=== PATIENT | male | born 1985 | race Caucasian/White ===

== ENCOUNTER 2020-05-04 17:44 | Emergency (ER) | payer BC ==
[~2020-05-04] VITALS: Ht 167.6 cm; Wt 83.5 kg
[2020-05-04 18:19] VITALS: BP_SYST 156
[2020-05-04] MEDS ORDERED: KETOROLAC TROMETHAMINE 60 MG/2 ML VIAL IM ONE (19:45)
[2020-05-04] MEDS: NACL 0.9% 1,000 ML IV ONE (20:06)
[2020-05-04] MEDS: KETOROLAC TROMETHAMINE 30 MG VIAL IVP ONE (20:07)
[2020-05-04] MEDS: ONDANSETRON HCL 4 MG/2 ML VIAL IVP ONE (20:08)
[2020-05-04 20:24] LABS: BASOPHILS % (AUTO) 0.2 % (0.0-2.0); EOSINOPHILS # (AUTO) 0.1 K/uL (0.0-0.4); EOSINOPHILS % (AUTO) 0.5 % (0.0-4.0); HEMATOCRIT 47.1 % (36-54); HEMOGLOBIN 15.9 g/dL (14.0-18.0); LYMPHOCYTES # (AUTO) 1.9 K/uL (1.0-5.5); LYMPHOCYTES % (AUTO) 17.2 % (20.5-51.5); MEAN CORPUSCULAR HEMOGLOBIN 30 pg (27-31); MEAN CORPUSCULAR HGB CONC 34 % (32-36); MEAN CORPUSCULAR VOLUME 89 fL (79.0-98.0); MONOCYTES # (AUTO) 0.5 K/uL (0.0-1.0); MONOCYTES % (AUTO) 4.3 % (1.7-9.3); NEUTROPHILS # (AUTO) 8.7 K/uL (1.8-7.7); NEUTROPHILS % (AUTO) 77.8 % (40.0-70.0); PLATELET COUNT (AUTO) 295 K/uL (130-430); RED BLOOD CELL COUNT(AUTO) 5.33 MIL/uL (4.2-6.2); RED CELL DISTRIBUTION WIDTH 13.5 % (9.0-15.0); WHITE BLOOD COUNT (AUTO) 11.1 K/uL (4.8-10.8)
[2020-05-04 20:39] LABS: CALCIUM 9.3 mg/dL (8.4-11.0); CREATININE 1.47 mg/dL (0.55-1.30)
[2020-05-04 20:45] LABS: TOTAL BILIRUBIN 0.4 mg/dL (0.0-1.0)
[2020-05-04 21:59] LABS: BILIRUBIN,URINE NEGATIVE (NEGATIVE); BLOOD, URINE 3+ (NEGATIVE); COLOR,URINE YELLOW (YELLOW); GLUCOSE,URINE NEGATIVE (NEGATIVE); KETONES,URINE NEGATIVE (NEGATIVE); LEUKOCYTE ESTERASE ,URINE NEGATIVE (NEGATIVE); NITRITE, URINE NEGATIVE (NEGATIVE); PROTEIN URINE NEGATIVE (NEGATIVE); UROBILINOGEN,URINE 0.2 (0.2-1.0)
[2020-05-04 22:10] LABS: CLARITY/URINE SLIGHTLY HAZY (CLEAR)
[2020-05-04 22:34] VITALS: BP_SYST 132
[2020-05-04 22:36] LABS: RBC,URINE 20-50 /HPF (0-3)
[2020-05-04 22:37] LABS: BACTERIA,URINE FEW /HPF (None Seen); WBC,URINE 0-3 /HPF (0-3)
== END 2020-05-04 22:34 | disposition home or self-care (01) ==
LOC: SED 17:44
DX: N23 Unspecified renal colic (principal); R74.0 Nonspecific elevation of levels of transaminase and lactic acid dehydrogenase [LDH]; N28.9 Disorder of kidney and ureter, unspecified
CPT/HCPCS: 36415; 74176; 80053; 81000; 85025; 96374; 96375; 99284; J1885; J2405; J7030

== ENCOUNTER 2020-05-07 22:29 | Emergency (ER) | payer BC ==
[~2020-05-07] VITALS: Ht 167.6 cm; Wt 83.5 kg
[2020-05-07 23:00] VITALS: BP_SYST 147
--- NOTE | 2020-05-07 23:25 | NUR ---
Patient ambulatory to bed 4 for evaluation
--- NOTE | 2020-05-07 23:55 | NUR ---
Patient came to ER. C/O LLQ abdominal pain x today. Patient states " started pain around 1999, took [place], no relief. " Per patient, Hx Kidney stone. A/O,X4, LLQ abdominal pain, pain rate 10/10, place patient on cafeteria monitor.
--- NOTE | 2020-05-08 | NUR ---
# 20 gauge angiocath placed to LAC. Use of asceptic technique. Opsite placed over site. Blood return noted. Blood for lab drawn from site. Flushed with 10 cc of normal saline. No evidence of infiltration noted. Patient tolerated well.
--- NOTE | 2020-05-08 | NUR ---
ER at bedside examining patient.
[2020-05-08] MEDS: KETOROLAC TROMETHAMINE 30 MG VIAL IVP ONE (00:29)
[2020-05-08] MEDS: fentaNYL CITRATE/PF 100 MCG/2 ML AMP IVP ONE (00:30)
[2020-05-08] MEDS: NACL 0.9% 1,000 ML IV ONE (00:35)
[2020-05-08 00:47] LABS: BASOPHILS % (AUTO) 0.3 % (0.0-2.0); EOSINOPHILS # (AUTO) 0.1 K/uL (0.0-0.4); EOSINOPHILS % (AUTO) 0.8 % (0.0-4.0); HEMATOCRIT 42.2 % (36-54); HEMOGLOBIN 14.4 g/dL (14.0-18.0); LYMPHOCYTES # (AUTO) 2.2 K/uL (1.0-5.5); LYMPHOCYTES % (AUTO) 18.2 % (20.5-51.5); MEAN CORPUSCULAR HEMOGLOBIN 30 pg (27-31); MEAN CORPUSCULAR HGB CONC 34 % (32-36); MEAN CORPUSCULAR VOLUME 89 fL (79.0-98.0); MONOCYTES # (AUTO) 1.2 K/uL (0.0-1.0); MONOCYTES % (AUTO) 9.7 % (1.7-9.3); NEUTROPHILS # (AUTO) 8.7 K/uL (1.8-7.7); PLATELET COUNT (AUTO) 287 K/uL (130-430); RED BLOOD CELL COUNT(AUTO) 4.76 MIL/uL (4.2-6.2); RED CELL DISTRIBUTION WIDTH 13.3 % (9.0-15.0); WHITE BLOOD COUNT (AUTO) 12.3 K/uL (4.8-10.8)
[2020-05-08 00:52] LABS: CALCIUM 8.8 mg/dL (8.4-11.0); CREATININE 1.65 mg/dL (0.55-1.30); POTASSIUM 3.7 mmol/L (3.5-5.1)
[2020-05-08 01:03] LABS: ALBUMIN 3.2 g/dL (3.4-4.8); TOTAL BILIRUBIN 0.7 mg/dL (0.0-1.0)
--- NOTE | 2020-05-08 01:06 | NUR ---
Patient came back from CT scan.
[2020-05-08] MEDS: DIPHENHYDRAMINE INJ 50 MG/ML VIAL IVP ONE (01:15)
[2020-05-08 01:23] LABS: BILIRUBIN,URINE NEGATIVE (NEGATIVE); BLOOD, URINE 1+ (NEGATIVE); CLARITY/URINE CLEAR (CLEAR); COLOR,URINE YELLOW (YELLOW); GLUCOSE,URINE NEGATIVE (NEGATIVE); KETONES,URINE NEGATIVE (NEGATIVE); LEUKOCYTE ESTERASE ,URINE NEGATIVE (NEGATIVE); NITRITE, URINE NEGATIVE (NEGATIVE); PROTEIN URINE NEGATIVE (NEGATIVE)
[2020-05-08 02:01] LABS: BACTERIA,URINE FEW /HPF (None Seen); WBC,URINE 0-3 /HPF (0-3)
--- NOTE | 2020-05-08 02:12 | NUR ---
Dr. Moore at bedside to eval and explain treatment plan.
[2020-05-08] MEDS: TAMSULOSIN HCL 0.4 MG CAP PO ONE (02:33)
[2020-05-08 02:45] VITALS: BP_SYST 121
--- NOTE | 2020-05-08 02:45 | NUR ---
Patient given written and verbal discharge instructions and verbalizes understanding. ER MD discussed with patient the results and treatment provided. Patient in stable condition. ID arm band removed. IV catheter removed intact and dressing applied, no active bleeding. Rx of Flomax given. Patient educated on pain management and to follow up with PMD. Pain Scale 1/10. Opportunity for questions provided and answered. Medication side effect fact sheet provided.
[2020-05-08] MEDS ORDERED: TAMSULOSIN HCL 0.4 MG CAP ONE (02:47)
== END 2020-05-08 02:45 | disposition home or self-care (01) ==
LOC: SED 22:29
DX: N20.1 Calculus of ureter (principal)
CPT/HCPCS: 36415; 74176; 80053; 81000; 85025; 96374; 96375; 99284; J1200; J1885; J3010; J7030